=== PATIENT | male | born 1960 | race Two or more races ===

== ENCOUNTER 2019-06-05 08:25 | Day surgery (SDC) | payer BC, OTHER ==
[~2019-06-05] VITALS: Ht 170.2 cm; Wt 75.3 kg
[2019-06-05] VITALS (10 sets, daily range): BP systolic 124–140; BP diastolic 79–92
--- NOTE | 2019-06-05 06:51 | Anethesia Preoperative Eval ---
Anesthesia Pre-op PMH/ROS General Date of Evaluation: Jun 05, 2019 Time of Evaluation: 06:49 Anesthesiologist: apryl ASA Score: ASA 2 Mallampati Score Class I : Soft palate, uvula, fauces, pillars visible Class II: Soft palate, uvula, fauces visible Class III: Soft palate, base of uvula visible Class IV: Only hard plate visible Mallampati Classification: Class II Surgeon: danielle Diagnosis: gerd, colon screening Surgical Procedure: egd/colonoscopy Anesthesia History: none Social History: smoking - former smoker, alcohol use Family History: no anesthesia problems Allergies: Coded Allergies: No Known Allergies (Unverified , 11/13/13) Medications: see eMAR Patient NPO?: Yes Past Medical History Gastrointestinal/Genitourinary: Reports: GERD, other - cholecystectomy Anesthesia Pre-op Phys. Exam Physician Exam Last Vital Signs Date Time Temp Pulse Resp B/P (MAP) Pulse Ox O2 Delivery O2 Flow Rate FiO2 06/05/19 09:26 Room Air 06/05/19 09:21 97.7 100 18 134/81 100 Constitutional: NAD Neurologic: CN 2-12 intact Cardiovascular: RRR Respiratory: CTA Gastrointestinal: S/NT/ND Airway Exam Mallampati Score: Class II MO: limited Neck: flexible TMD: 2fb ROM: limited Anesthesia Pre-op A/P Risk Assessment & Plan Assessment: asa2 Plan: mac Status Change Before Surgery: No Pre-Antibiotics Drug: Terra Thapa MD Jun 05, 2019 06:51
[~2019-06-05 08:25] MED LIST: Atropine Inj 1mg/10ml Syr IV PRN; DiphenhydrAMINE 50mg/ml Inj IVP PRN; LR 1000ml 1,000 ML IVLG SCH; Midazolam 2mg/2ml Inj IVP PRN; PREVACID15 M2 ORAL; fentaNYL 100 mcg/2 mL IV PRN
--- NOTE | 2019-06-05 08:34 | Short Stay Surgery H&P ---
History of Present Illness History of Present Illness Chief Complaint Abdominal pain and screening colon HPI Ken Miller is a 58 year old male who was admitted on for Screening Colonoscopy, Gerd Patient History Allergies: Coded Allergies: No Known Allergies (Unverified , 11/13/13) PAST MEDICAL HISTORY: (1) History of cholecystectomy Medication History Scheduled Lansoprazole* (Prevacid*), 15 MG ORAL DAILY, (Reported) Review of Systems Respiratory: Reports: no symptoms Skeletal: Reports: no symptoms Gastrointestinal: Reports: gastro esophageal reflux disease Genitourinary: Reports: no symptoms Neurologic: Reports: no symptoms Endocrine: Reports: no symptoms Hematologic: Reports: no symptoms Physical Exam Skin: normal HENT: normal Heart: normal Lungs: normal Abdomen: normal Extremities: normal Genitourinary: normal Plan Plan of Care Upper GI endoscopy and colonoscopy. Preop Interventions None. Summary of Findings See the reports Attestation Are the patient's medical conditions optimized for surgery? Attestation Response: yes Leland Kellogg MD Jun 05, 2019 08:34
--- NOTE | 2019-06-05 08:35 | Pre-Procedure Note/Attestation ---
Pre-Procedure Note/Attestation Complete Prior to Procedure Planned Procedure: left Procedure Narrative: Examination of the upper and the lower GI tract via endoscopy with obtaining biopsy. Indications for Procedure Pre-Operative Diagnosis: R/O gastritis/peptic ulcer/polyps/ tumor Attestation I attest that I discussed the nature of the procedure; its benefits; risks and complications; and alternatives (and the risks and benefits of such alternatives ), prior to the procedure, with the patient (or the patient's legal enrollment representative). I attest that, if there was a reasonable possibility of needing a blood transfusion, the patient (or the patient's legal enrollment representative) was given the [place] [facility] [employer] [facility] standardized written summary, pursuant to the [place] Blood Safety Act ([place] Health and Safety Code # 1645, as amended). I attest that I re-evaluated the patient just prior to the surgery and that there has been no change in the patient's H&P, except as documented below: Leland Kellogg MD Jun 05, 2019 08:35
[2019-06-05] MEDS ORDERED: LR 1000ml ONE (09:30)
[2019-06-05] MEDS ORDERED: Lidocaine 1% MPF 10mg/ml 5ml ONE (09:30)
[2019-06-05] MEDS ORDERED: Propofol 200mg/20ml IV ONE (09:30)
--- NOTE | 2019-06-05 10:10 | Endoscopy Procedure Note ---
Endoscopy Procedure Note General Indication for Procedure: Abdominal pains/GERds/screening colon Procedures Performed: EGD - Mild/moderate gastritis, biopsy taken from gastric body., colonoscopy - Very difficult procedure due to high redunant left colon with severe diverticulosis of the left colon. Grade III/IV internal hemorrhoids. Specimen: yes Pt Tolerated Procedure Well: Yes Estimated Blood Loss: none Anesthesia Anesthesiologist: Dr. Reynoso Anesthesia: moderate sedation Medications Medication Given: see anesthesia record Inserted Devices Implant(s) used?: No Quality Quality of Bowel Preparation: Excellent Was there any complications?: No GI Core Measures 50 yrs or older w/o bx or poly: Yes 10yrs. F/U recommended: Yes <3yrs. since last colonoscopy: No Med reason:<3 yrs.: System Reason:<3 yrs.: Leland Kellogg MD Jun 05, 2019 10:10
--- NOTE | 2019-06-05 10:11 | Discharge Instructions ---
Discharge Instructions Discharge Instructions Follow up with: See the laura hernandez two weeks in the office For Congestive Heart Failure Reminder Report to your physician any weight gain of 5 pounds or more in one week. Leland Kellogg MD Jun 05, 2019 10:11
--- NOTE | 2019-06-05 10:27 | Immediate Post-Op Evaluation ---
Immediate Post-Op Evalulation Immediate Post-Op Evalulation Procedure: egd/colonoscopy w/bx Date of Evaluation: Jun 05, 2019 Time of Evaluation: 10:28 IV Fluids: 400ml lr Blood Products: none Estimated Blood Loss: negligible Blood Pressure Systolic: 138 Blood Pressure Diastolic: 85 Pulse Rate: 55 Respiratory Rate: 18 O2 Sat by Pulse Oximetry: 98 Temperature (Fahrenheit): 97.4 Pain Score (1-10): 0 Nausea: No Vomiting: No Complications none Patient Status: awake, reacts, patent Hydration Status: adequate Drug: Terra Thapa MD Jun 05, 2019 10:27
--- NOTE | 2019-06-05 10:30 | 48 Hour Post Anesthesia Eval ---
Post Anesthesia Evaluation Procedure: egd/colonoscopy w/bx Date of Evaluation: Jun 05, 2019 Time of Evaluation: 10:30 Blood Pressure Systolic: 140 0: 81 Pulse Rate: 59 Respiratory Rate: 18 Temperature (Fahrenheit): 97.4 O2 Sat by Pulse Oximetry: 98 Airway: patent Nausea: No Vomiting: No Pain Intensity: 0 Hydration Status: adequate Cardiopulmonary Status: stable Mental Status/LOC: patient returned to baseline Post-Anesthesia Complications: none Follow-up care needed: N/A Terra Reynoso MD Jun 05, 2019 10:30
--- NOTE | 2019-06-05 15:30 | Operative Note - Dictated ---
DATE OF OPERATION: 06/05/2019 SURGEON: Leland Kellogg M.D. PROCEDURE: Esophagogastroduodenoscopy with biopsy. PREOPERATIVE DIAGNOSIS: Abdominal pain. POSTOPERATIVE DIAGNOSIS: Mild/moderate generalized gastritis, otherwise normal study. Biopsy was taken per random from gastric body. MEDICATION USED: Per Dr. Yang, anesthesiologist. INSTRUMENT: GIF Olympus upper GI video endoscope. DESCRIPTION OF PROCEDURE: The patient after arriving endoscopy unit, was told about risks and benefits of the procedure, which he accepted and signed informed consent. At this time, he was then put on the left lateral decubitus position. After adequate IV sedation, the scope was gently passed through the cricopharyngeal area, was lodged into the upper esophagus and gradually advanced towards gastroesophageal junction. The entire length of the esophagus was normal. No evidence of varices, inflammatory process etc. was seen. However, there was evidence of moderate-sized hiatal hernia noted. Upon the passage of the scope into the stomach, gastric cavity was distended with insufflation of air and generally revealed evidence of mild to moderate gastritis presenting with erythema from the fundus all the way to the antrum and pylorus. There was no evidence of ulcers, tumors, polyps etc. At this time, one random biopsy from gastric body obtained and subsequently scope was passed through the pylorus. First and second portion of duodenum were examined, which they looked completely normal. At this time, the scope was pulled out and procedure was terminated. The patient tolerated the procedure well and left the endoscopy room in a good condition. Leland Kellogg M.D. DR: TED JOB#: [id number] CC:
--- NOTE | 2019-06-05 15:45 | Procedure Note ---
DATE OF PROCEDURE: 06/05/2019 SURGEON: Leland Kellogg M.D. PROCEDURE: Total colonoscopy. PREOPERATIVE DIAGNOSIS: Screening colonoscopy. POSTOPERATIVE DIAGNOSES: 1. Grade 3/4 internal hemorrhoid. 2. Severe diverticulosis of the left colon and high redundancy of the left colon, otherwise normal study all the way up to the base of the cecum. 3. Difficult procedure due to high redundancy of the colon. MEDICATION USED: Dr. Yang, anesthesiologist. INSTRUMENT: GIF Olympus video colonoscope. DESCRIPTION OF PROCEDURE: The patient after arriving endoscopy unit, was told about risks and benefits of the procedure which he accepted and signed informed consent. He was then put on the left lateral decubitus position. After adequate IV sedation, the scope was gently passed through the anal area which revealed evidence of prolapsed internal hemorrhoids consistent with grade 3/4 internal hemorrhoids but they were not bleeding or friable. The retroflexion maneuver was also applied in the rectum, did not reveal any other abnormalities except hemorrhoids as I mentioned. At this time, the scope was gradually passed through a very redundant left colon, which was filled with diverticular lesions and the scope had to be maneuvered significantly in different ways which made the procedure very difficult to pass through this area. Finally, the scope got into the distal descending colon and gradually was advanced towards the splenic flexure, transverse colon, hepatic flexure, and guided into the right ascending colon all the way to the base of the cecum. All these areas however remained to be completely normal and no evidence of any other abnormalities except what is stated was found. The colon cleanup was adequate and excellent. At this time, within 6 minutes the scope was gradually pulled out and the colon was examined carefully and no other pathology was found. The patient tolerated the procedure well and left the endoscopy room in a good condition. Leland Kellogg M.D. DR: Andrea JOB#: [id number] CC:
== END 2019-06-05 11:35 | disposition home or self-care (01) ==
LOC: SUR 08:25
DX: Z12.11 Encounter for screening for malignant neoplasm of colon (principal); K64.8 Other hemorrhoids; K57.90 Diverticulosis of intestine, part unspecified, without perforation or abscess without bleeding; K29.70 Gastritis, unspecified, without bleeding; Z90.49 Acquired absence of other specified parts of digestive tract; K21.9 Gastro-esophageal reflux disease without esophagitis
CPT/HCPCS: 43239; 45378; J2704; J7120; 94003; 94150